=== PATIENT | female | born 2005 | race Caucasian/White ===

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

== ENCOUNTER → 2025-06-20 | Outpatient (CLI) | payer OTHER, MEDICAID | LOC: M RAD 11:24 | PROVIDERS: ATTEND Physician Assistant | DX: Z34.82 Encounter for supervision of other normal pregnancy, second trimester (principal); Z3A.26 26 weeks gestation of pregnancy ==